=== PATIENT | male | born 1965 | race Caucasian/White ===

== ENCOUNTER 2019-12-19 15:16 | Inpatient (IN) | payer MEDICAID ==
[~2019-12-19] VITALS: Ht 172.7 cm; Wt 86.9 kg
[2019-12-19] MEDS ORDERED: SODIUM CHLORIDE 0.9% 1,000ML IVBOLUS ONE ×2 (15:30→16:30)
[2019-12-19] MEDS ORDERED: SODIUM CHLORIDE FLUSH 10ML SYR IVF ONE (15:30)
[2019-12-19] MEDS ORDERED: PLEASE ENTER ALLERGIES MC SCH (16:00)
[2019-12-19 16:08] LABS: BASOPHILS # (AUTO) 0.04 x10^3/uL (0-0.1); BASOPHILS % (AUTO) 0 % (0-1); EOSINOPHILS # (AUTO) 0.34 x10^3/uL (0-0.4); EOSINOPHILS % (AUTO) 4 % (1-7); LYMPHOCYTES % (AUTO) 16 % (22-44); MD NO; MEAN CORPUSCULAR HEMOGLOBIN 30.6 pg (27.5-34.5); MEAN PLATELET VOLUME 10.4 fL (7.4-10.4); MONOCYTES # (AUTO) 0.55 x10^3/uL (0.2-0.8); MONOCYTES % (AUTO) 6 % (2-9); NEUTROPHILS # (AUTO) 6.98 x10^3/uL (1.8-6.8); NEUTROPHILS % (AUTO) 74 % (42-75); PLATELET COUNT 183 x10^3/uL (130-400); RED BLOOD COUNT 4.97 x10^6/uL (4.38-5.82); RED CELL DISTRIBUTION WIDTH 12.9 % (9.4-14.8)
[2019-12-19 16:10] LABS: ALBUMIN 3.8 g/dL (3.4-5.0); ANION GAP 10 mmol/L (5-15); CALCIUM 8.5 mg/dL (8.5-10.1); CHLORIDE 100 mmol/L (98-107)
--- NOTE | 2019-12-19 16:10 | NUR ---
Pt arrives to ed with syncopal episode and loss of bowel control. Pt reports that she had severe abd distress and had bowel distress and had a accident in his pant. Pt reports that he had a similar episode when he started his metformin but he does not manage his diabetes well. Pt reports that he is unsteady on his feet. Pt denies any chest pain or distress. Pt connected to monitors and call light in reach. IVF started.
[2019-12-19 16:14] LABS: ALANINE AMINOTRANSFERASE 28 U/L (12-78); ALKALINE PHOSPHATASE 88 U/L (45-117); BILIRUBIN,TOTAL 0.5 mg/dL (0.2-1.0); CREATININE 1.61 mg/dL (0.7-1.3); TOTAL PROTEIN 7.1 g/dL (6.4-8.2)
[2019-12-19 16:16] LABS: SALICYLATE LEVEL < 1.7 mg/dL (2.8-20.0)
[2019-12-19 16:32] LABS: AMPHETAMINE SCREEN, URINE Negative (Negative); BARBITURATE SCREEN, URINE Negative (Negative); BENZODIAZEPINE SCREEN, URINE Negative (Negative); CANNABINOID SCREEN, URINE Positive (Negative); COCAINE SCREEN, URINE Negative (Negative); METHADONE SCREEN, URINE Negative (Negative); OPIATE SCREEN, URINE Negative (Negative)
[2019-12-19 16:33] LABS: MICROSCOPIC AUTO
[2019-12-19 16:34] LABS: CULTURE INDICATED? NO
--- NOTE | 2019-12-19 16:36 | NUR ---
CDIFF TEST CANCELLED PTS STOOL IS FORMED.
[2019-12-19 16:39] LABS: ACETONE, SERUM Negative (Negative)
[2019-12-19] MEDS ORDERED: DOCUSATE 100 MG CAPSULE PO PRN (18:00)
[2019-12-19] MEDS ORDERED: METOCLOPRAMIDE 5 MG/ML, 2ML IVPush PRN (18:00)
[2019-12-19] MEDS ORDERED: hydrALAzine 20 MG/ML, 1ML IVPush PRN (18:00)
[2019-12-19] MEDS ORDERED: LIDODERM 5% PATCH TD PRN (18:00)
[2019-12-19] MEDS ORDERED: LORazepam 0.5MG TABLET PO PRN (18:00)
[2019-12-19] MEDS ORDERED: INSULIN REGULAR 100 UNITS/ML, 3ML VIAL IVPush ONE (18:00)
[2019-12-19] MEDS ORDERED: POLYETHYLENE GLYCOL 17 GM PACKET PO PRN (18:00)
[2019-12-19] MEDS ORDERED: ACETAMINOPHEN 325 MG TABLET PO PRN (18:00)
[2019-12-19] MEDS ORDERED: ONDANSETRON ODT 4 MG PO PRN (18:00)
[2019-12-19] MEDS ORDERED: LABETALOL 5MG/ML, 20ML IVPush PRN (18:00)
[2019-12-19] MEDS ORDERED: HEPARIN 5,000 UNITS/ML, 1ML ONE (18:21)
--- NOTE | 2019-12-19 18:38 | NUR ---
DR. ALVARADO IS OFF. SPOKE WITH CROSS COVERING PROVIDER, ÁLVARO, REGARDING REGULAR INSULIN IV ONE-TIME DOSE FINGERSTICK GLUCOSE IS NOW 372MG/DL. REGULAR INSULING IVP DOSE CANCELLED. BAGMAN/WOMAN ÁLVARO TO CHANGE SLIDING SCALE INSULIN DOSE FROM LOW-DOSE TO MODERATE DOSAGE SCALE. PT READY TO GO TO HOSPITAL ROOM.
[2019-12-19] MEDS: HEPARIN 5,000 UNITS/ML, 1ML SQ SCH (18:41)
[2019-12-19 19:45] VITALS: BP 151/92
[2019-12-19] MEDS ORDERED: LOPE-114 PO (20:02)
[2019-12-19] MEDS ORDERED: INSULIN LISPRO 100 UNITS/ML, PEN SQ-INSULIN SCH (21:00)
[2019-12-19 21:15] LABS: CHLORIDE,URINE RANDOM 29 mmol/L; POTASSIUM,URINE RANDOM 19 mmol/L; SODIUM,URINE RANDOM 35 mmol/L
[2019-12-19] MEDS: SODIUM CHLORIDE 0.9% 1,000 ML IV SCH (21:20)
[2019-12-19] MEDS: GABAPENTIN 300 MG CAPSULE PO SCH (21:58)
[2019-12-19] MEDS: INSULIN LISPRO 100 UNITS/ML, PEN SQ-INSULIN SCH (21:58)
[2019-12-19] MEDS: LIDODERM REMOVE PATCH NOTE XX SCH (22:00)
[2019-12-20 01:18] VITALS: BP 147/86
[2019-12-20] MEDS: HEPARIN 5,000 UNITS/ML, 1ML SQ SCH ×3 (02:32→18:15)
[2019-12-20] MEDS: INSULIN LISPRO 100 UNITS/ML, PEN SQ-INSULIN SCH ×6 (02:33→21:08)
[2019-12-20] MEDS: ASPIRIN 81 MG TABLET EC PO SCH (05:48)
[2019-12-20] MEDS: SODIUM CHLORIDE 0.9% 1,000 ML IV SCH ×2 (05:48→14:09)
[2019-12-20 05:59] LABS: BASOPHILS # (AUTO) 0.02 x10^3/uL (0-0.1); BASOPHILS % (AUTO) 0 % (0-1); EOSINOPHILS # (AUTO) 0.41 x10^3/uL (0-0.4); EOSINOPHILS % (AUTO) 5 % (1-7); LYMPHOCYTES # (AUTO) 2.04 x10^3/uL (1-3.4); LYMPHOCYTES % (AUTO) 24 % (22-44); MD NO; MEAN CORPUSCULAR HEMOGLOBIN 30.4 pg (27.5-34.5); MEAN CORPUSCULAR HGB CONC 33.6 g/dL (33.2-36.2); MEAN CORPUSCULAR VOLUME 90.6 fL (81-97); MEAN PLATELET VOLUME 10.2 fL (7.4-10.4); MONOCYTES # (AUTO) 0.59 x10^3/uL (0.2-0.8); MONOCYTES % (AUTO) 7 % (2-9); NEUTROPHILS # (AUTO) 5.61 x10^3/uL (1.8-6.8); NEUTROPHILS % (AUTO) 65 % (42-75); PLATELET COUNT 171 x10^3/uL (130-400); RED BLOOD COUNT 4.44 x10^6/uL (4.38-5.82); RED CELL DISTRIBUTION WIDTH 12.7 % (9.4-14.8)
[2019-12-20 06:10] LABS: CHLORIDE 110 mmol/L (98-107)
[2019-12-20 06:19] LABS: ALANINE AMINOTRANSFERASE 22 U/L (12-78); ALBUMIN 3.1 g/dL (3.4-5.0); ALKALINE PHOSPHATASE 67 U/L (45-117); ANION GAP 6 mmol/L (5-15); BILIRUBIN,TOTAL 0.5 mg/dL (0.2-1.0); CALCIUM 8.4 mg/dL (8.5-10.1); CHOL/HDL RATIO 5.5; CHOLESTEROL, TOTAL 166 mg/dL (140-239); CREATININE 1.02 mg/dL (0.7-1.3); HDL CHOL % 18 % (26-37); HDL CHOLESTEROL (DIRECT) 30 mg/dL (40-60); LDL CHOLESTEROL,CALCULATED 83 mg/dL (54-169); LDL/HDL RATIO 2.8 (0.5-3.0); TOTAL PROTEIN 5.9 g/dL (6.4-8.2); TRIGLYCERIDES 265 mg/dL (50-200); VLDL CHOLESTEROL 53 mg/dL (0-25)
[2019-12-20] MEDS: LISINOPRIL 10 MG TABLET PO SCH (08:47)
[2019-12-20] MEDS: GABAPENTIN 300 MG CAPSULE PO SCH ×3 (08:47→20:55)
[2019-12-20] MEDS ORDERED: LIDODERM 5% PATCH TD PRN (09:00)
[2019-12-20 09:58] VITALS: BP 135/89
[2019-12-20 15:51] VITALS: BP 134/82
[2019-12-20 20:01] VITALS: BP 112/70
[2019-12-20] MEDS ORDERED: INSULIN GLARGINE 100 UNITS/ML, PEN SQ-INSULIN SCH (21:00)
[2019-12-20] MEDS ORDERED: ATORVASTATIN 40 MG TABLET PO SCH (21:00)
[2019-12-20] MEDS: LIDODERM REMOVE PATCH NOTE XX SCH (21:10)
[2019-12-21 01:26] VITALS: BP 136/90
[2019-12-21] MEDS: INSULIN LISPRO 100 UNITS/ML, PEN SQ-INSULIN SCH ×3 (02:05→10:41)
[2019-12-21] MEDS: HEPARIN 5,000 UNITS/ML, 1ML SQ SCH ×2 (02:07→10:42)
[2019-12-21] MEDS: ASPIRIN 81 MG TABLET EC PO SCH (06:14)
[2019-12-21 07:22] VITALS: BP 150/98
[2019-12-21] MEDS: LISINOPRIL 10 MG TABLET PO SCH (08:58)
[2019-12-21] MEDS: GABAPENTIN 300 MG CAPSULE PO SCH (08:58)
[2019-12-21] MEDS ORDERED: GLYB5TAB3 PO (10:48)
[2019-12-21] MEDS ORDERED: ASPI81TA45 PO (10:48)
[2019-12-21] MEDS ORDERED: ATOR40TA78 PO (10:48)
[2019-12-21] MEDS ORDERED: LISI-167 PO (10:48)
[2019-12-21] MEDS ORDERED: GABA300C10 PO (10:48)
[2019-12-21] MEDS ORDERED: glucometer (10:50)
[2019-12-21] MEDS ORDERED: lancet (10:52)
== END 2019-12-21 12:12 | disposition home or self-care (01) | DRG 312 ==
LOC: ED 17:07 → EDIP 17:08 → 4EST 19:17
PROVIDERS: ADMIT Internal Medicine; ATTEND Hospitalist
DX: R55 Syncope and collapse (principal); N17.9 Acute kidney failure, unspecified; E11.65 Type 2 diabetes mellitus with hyperglycemia; H93.19 Tinnitus, unspecified ear; K52.9 Noninfective gastroenteritis and colitis, unspecified; I10 Essential (primary) hypertension; E11.40 Type 2 diabetes mellitus with diabetic neuropathy, unspecified; N52.9 Male erectile dysfunction, unspecified; F32.9 Major depressive disorder, single episode, unspecified; Z87.891 Personal history of nicotine dependence; Z91.19 Patient's noncompliance with other medical treatment and regimen; Z86.73 Personal history of transient ischemic attack (TIA), and cerebral infarction without residual deficits
CPT/HCPCS: 36415; 70450; 71045; 80053; 80061; 80307; 81001; 82010; 82436; 82962; 83036; 83605; 83735; 84100; 84133; 84300; 85025; 87040; 93005; 93306; 93356; 93880; 96360; 96361; G0378; J1644; J1815; J7030